=== PATIENT | female | born 1945 | race Caucasian/White ===

== ENCOUNTER 2016-11-11 14:24 | Observation (INO) | payer MEDICARE, BC ==
[2016-11-11] MEDS ORDERED: Sodium Chloride 0.9% 5 ML Syringe FLUSH PRN ×2 (14:57→17:19)
--- NOTE | 2016-11-11 15:48 | EDM.PDOC ---
Addendum entered and electronically signed by Lance Fregoso PA 11/11/16 17:24 : ER H&P CAN BE USED FOR ADMISSION H&P Original Note: ED HPI NEURO - General Chief Complaint: Neuro Symptoms/Deficits Stated Complaint: CONFUSED, LOSS OF MEMORY Time Seen by Provider: 11/11/16 14:57 Source of Information: Reports: Patient, Family (SON) History Limitations: Reports: No limitations - History of Present Illness INITIAL COMMENTS - FREE TEXT/NARRATIVE: PT STATES AT 1230 TODAY SHE DEVELOPED NUMBNESS AND TINGLING IN FINGERS OF RIGHT HAND. THIS HAPPENED WHILE SHE WAS TALKING ON PHONE. AT THAT TIME SHE ALSO HAD DIFFICULT TIME EXPRESSING WORDS AND HAD HARD TIME REMEMBERING PEOPLE. LASTED LESS THAN ONE HOUR. ADMITS TO VERY STRESSFUL MORNING BECAUSE OF FAMILY ISSUES. DENIES CP, SOB, LOREDO, BLURRY VISION, N/V/D, FEVER, OR SIMILAR SYMPTOMS IN PAST. Timing/Duration: Reports: Hour(s): (2) Location (Neuro Complaint): Reports: upper extremity, right Quality (Neuro Complaint): Reports: numbness, tingling Severity: mild Improves with: Reports: None Worsens with: Reports: None Associated Symptoms: Reports: confusion. Denies: headaches, seizure, shortness of breath, chest pain, fever/chills, nausea/vomiting - Related Data Allergies/ADRs: Allergies Allergy/AdvReac Type Severity Reaction Status Date / Time morphine Allergy Swelling Verified 11/11/16 15:06 Home Meds: Home Meds Ascorbic Acid [Vitamin C] 1,000 mg PO DAILY 11/11/16 [History] Aspirin [Ecotrin] 81 mg PO DAILY 11/11/16 [History] Cholecalciferol (Vitamin D3) [Vitamin D3] 2,000 units PO DAILY 11/11/16 [History ] Dexlansoprazole [Dexilant] 60 mg PO DAILY 11/11/16 [History] LORazepam [Ativan] 1 mg PO Q8H PRN 11/11/16 [History] Vitamin B6-pyridOXINE 100 mg PO DAILY 11/11/16 [History] atorvaSTATin Calcium [Atorvastatin Calcium] 20 mg PO DAILY 11/11/16 [History] metFORMIN HCl [Metformin HCl ER] 500 mg PO DAILY 11/11/16 [History] Social & Family History - Tobacco Use Smoking Status *Q: Never Smoker Second Hand Smoke Exposure: No - Caffeine Use Caffeine Use: Reports: Coffee Caffeine Use Comment: 2 cups daily usually - Recreational Drug Use Recreational Drug Use: No ED ROS GENERAL - Review of Systems Review Of Systems: ROS reveals no pertinent complaints other than HPI. Constitutional: Reports: no symptoms HEENT: Reports: No symptoms Respiratory: Reports: No Symptoms Cardiovascular: Reports: No symptoms Endocrine: Reports: no symptoms GI/Abdominal: Reports: No symptoms : Reports: no symptoms Musculoskeletal: Reports: no symptoms Skin: Reports: no symptoms Neurological: Reports: Confusion, Numbness, Change in Speech. Denies: Pre- Existing Deficit Hematologic/Lymphatic: Reports: no symptoms Immunologic: Reports: no symptoms ED EXAM, NEURO - Physical Exam Exam: See Below Exam Limited By: No limitations General Appearance: alert, WD/WN, mild distress Eye Exam: bilateral eye: normal inspection Ears: normal external exam, normal canal, normal TMs Nose: normal inspection, normal mucosa, no blood Throat/Mouth: Normal inspection, Normal lips, Normal oropharynx, Normal voice, No airway compromise Head Exam: atraumatic, normocephalic Neck: normal inspection, supple. No: carotid bruit, lymphadenopathy (L), lymphadenopathy (R), thyromegaly Respiratory/Chest: no respiratory distress, lungs clear, normal breath sounds, no accessory muscle use, chest non-tender Cardiovascular: regular rate, rhythm, no murmur, no rub GI/Abdominal: normal bowel sounds, soft, non tender, no distention, no abnormal bruit, no mass Neurological: alert, normal mood/affect, CN II-XII intact, no motor/sensory deficits, oriented x 3 Extremities: normal inspection, non-tender, no pedal edema, normal capillary refill Psychiatric: anxious Skin Exam: Warm, Dry, Intact, Normal color, No rash EKG INTERPRETATION EKG Date: 11/11/16 Time: 15:15 Rhythm: NSR [place]: normal P-wave: present QRS: normal ST-T: normal Comparison: NA - no prior EKG Course - Vital Signs Last Recorded V/S: Last Vital Signs Temp 98.3 F 11/11/16 14:40 Pulse 88 11/11/16 14:40 Resp 16 11/11/16 14:40 BP 176/69 H 11/11/16 14:40 Pulse Ox 95 11/11/16 14:40 - Orders/Labs/Meds Orders: Active Orders 24 hr Category Date Time Status EKG Documentation Completion [RC] ASDIRECTED Care 11/11/16 14:58 Ordered Peripheral IV Care [RC] . DIRECTED Care 11/11/16 14:58 Ordered Chest 1V Frontal [CR] Stat Exams 11/11/16 14:57 Ordered Head wo Cont [CT] Stat Exams 11/11/16 14:57 Ordered COMPREHENSIVE METABOLIC PN,CMP [CHEM] Stat Lab 11/11/16 14:57 Ordered INR,PT,PROTHROMBIN TIME [COAG] Stat Lab 11/11/16 14:57 Ordered MAGNESIUM [CHEM] Stat Lab 11/11/16 14:57 Ordered PTT,PARTIAL THROMBOPLSTIN TIME [COAG] Stat Lab 11/11/16 14:57 Ordered TROPONIN I [CHEM] Stat Lab 11/11/16 14:57 Ordered Sodium Chloride 0.9% [Syrex Flush] Med 11/11/16 14:57 Ordered 5 ml FLUSH Q8HR PRN Peripheral IV Insertion Adult [OM.PC] Urgent Oth 11/11/16 14:57 Ordered Saline Lock Insert [OM.PC] Stat Oth 11/11/16 14:57 Ordered EKG 12 Lead [EK] Stat Ther 11/11/16 14:57 Ordered Medication Orders Sodium Chloride (Syrex Flush) 5 ml FLUSH Q8HR PRN PRN Reason: Keep Vein Open Labs: Laboratory Tests 11/11/16 Range/Units 15:05 WBC 7.9 (5.0-10.0) 10^3/uL RBC 4.83 (3.80-5.50) 10^6/uL Hgb 13.9 (12.0-16.0) g/dL Hct 42.0 (37.0-47.0) % MCV 86.9 (82.0-92.0) fL MCH 28.8 (27.0-31.0) pg MCHC 33.1 (32.0-36.0) g/dL RDW 12.1 (11.5-14.5) % Plt Count 228 (150-300) 10^3/uL MPV 7.2 L (7.4-10.4) fL Neut % (Auto) 56.1 (50.0-70.0) % Lymph % (Auto) 35.2 (20.0-40.0) % Mineral % (Auto) 6.6 (2.0-8.0) % Eos % (Auto) 1.9 (1.0-3.0) % Baso % (Auto) 0.2 (0.0-1.0) % Neut # 4.4 (2.5-7.0) 10^3/uL Lymph # 2.8 (1.0-4.0) 10^3/uL Mineral # 0.5 (0.1-0.8) 10^3/uL Eos # 0.2 (0.1-0.3) 10^3/uL Baso # 0.0 (0.0-0.1) 10^3/uL Meds: Medications Generic Name Dose Route Start Last Admin Trade Name Freq PRN Reason Stop Dose Admin Sodium Chloride 5 ml 11/11/16 14:57 Syrex Flush FLUSH Q8HR PRN Keep Vein Open - Radiology Interpretation Free Text/Narrative:: CXR NEGATIVE FOR ACUTE PROCESS - Re-Assessments/Exams Free Text/Narrative Re-Assessment/Exam: 11/11/16 17:15 PT AFEBRILE, NONTOXIC APPEARING, ASYMPTOMATIC WHILE IN ER. DENIES CP, LOREDO, NAUSEA. DISCUSSED WITH PT AND DR RUSS AND PT WILL BE ADMITTED FOR OBSERVATION. Departure - Departure Time of Disposition: 17:18 Disposition: Refer to Observation Condition: good Clinical Impression: Anxiety TIA (transient ischemic attack) Qualifiers: Transient cerebral ischemia type: unspecified Qualified Code(s): G45.9 - Transient cerebral ischemic attack, unspecified Forms: ED Department Discharge - My Orders Last 24 Hours: My Active Orders 11/11/16 14:57 Chest 1V Frontal [CR] Stat Head wo Cont [CT] Stat COMPREHENSIVE METABOLIC PN,CMP [CHEM] Stat INR,PT,PROTHROMBIN TIME [COAG] Stat MAGNESIUM [CHEM] Stat PTT,PARTIAL THROMBOPLSTIN TIME [COAG] Stat TROPONIN I [CHEM] Stat Sodium Chloride 0.9% [Syrex Flush] 5 ml FLUSH Q8HR PRN Peripheral IV Insertion Adult [OM.PC] Urgent Saline Lock Insert [OM.PC] Stat EKG 12 Lead [EK] Stat 11/11/16 14:58 EKG Documentation Completion [RC] ASDIRECTED Peripheral IV Care [RC] . DIRECTED - Assessment/Plan Last 24 Hours: My Active Orders 11/11/16 14:57 Chest 1V Frontal [CR] Stat Head wo Cont [CT] Stat COMPREHENSIVE METABOLIC PN,CMP [CHEM] Stat INR,PT,PROTHROMBIN TIME [COAG] Stat MAGNESIUM [CHEM] Stat PTT,PARTIAL THROMBOPLSTIN TIME [COAG] Stat TROPONIN I [CHEM] Stat Sodium Chloride 0.9% [Syrex Flush] 5 ml FLUSH Q8HR PRN Peripheral IV Insertion Adult [OM.PC] Urgent Saline Lock Insert [OM.PC] Stat EKG 12 Lead [EK] Stat 11/11/16 14:58 EKG Documentation Completion [RC] ASDIRECTED Peripheral IV Care [RC] . DIRECTED Assessment:: TIA Plan: ADMIT TO OBSERVATION
[2016-11-11 15:52] LABS: CHLORIDE,CL 104 mmol/L (98-115); SODIUM,NA 143 mmol/L (136-145)
[2016-11-11] MEDS ORDERED: Clopidogrel 75 MG Tab PO ONE (17:23)
[2016-11-11] MEDS: Acetaminophen 325 MG Tab PO PRN (18:23)
[2016-11-11] MEDS ORDERED: Non-Formulary Medication 1 Each (Lorazepam [Ativan] 1 MG) PO PRN (20:06)
[2016-11-12] MEDS: Acetaminophen 325 MG Tab PO PRN (04:51)
[2016-11-12 06:16] VITALS: BP 112/70
[2016-11-12] MEDS ORDERED: LORAZEPAM PO PRN (08:39)
[2016-11-12] MEDS ORDERED: LORazepam 0.5 MG Tab PO PRN (08:40)
[2016-11-12] MEDS ORDERED: metFORMIN 500 MG Tab.ER PO SCH (08:45)
[2016-11-12] MEDS ORDERED: Non-Formulary Medication 1 Each (Metformin Hcl [Metformin Hcl Er] 500 MG) PO SCH (09:00)
--- NOTE | 2016-11-12 16:34 | PCM.DCSUM1 ---
Discharge Summary - Hospital Course Free Text/Narrative:: PT PRESENTED TO ER LAST NIGHT WITH CONFUSION AND RUE NUMBNESS AND TINGLING, AND EVALUATED TO R/O CVA/ TIA. EKG, CXR, LAB VALUES, AND CT HEAD WERE ALL NEGATIVE. PT WAS ADMITTED FOR OBSERVATION STATUS. 75 MG PLAVIX WAS INITIATED. NEURO CHECKS WERE COMPLETED Q2 WHILE IN HOSPITAL. PT HAD UNEVENTFUL NIGHT. VSS REMAINED STABLE, NO REOCCURRENCE OF SYMPTOMS, AND PT FEELS WELL. PT WILL BE DISCHARGED WITH RX FOR 75MG PLAVIX AND F/U WITH DR RUSS IN 2-3 DAYS. - Discharge Data Discharge Date: 11/12/16 Discharge Disposition: Home, Self-Care 01 Condition: Good - Patient Instructions Diet: Regular Diet as Tolerated Activity: No Strenuous Activities, Rest and Relax Today Other/Special Instructions: RETURN TO CLINIC IN 3-5 DAYS. CALL FOR APPOINTMENT - Discharge Plan Prescriptions/Med Rec: Clopidogrel [Plavix] 75 mg PO DAILY #30 tablet Home Medications: Home Meds Ascorbic Acid [Vitamin C] 1,000 mg PO DAILY 11/11/16 [History] Aspirin [Ecotrin] 81 mg PO DAILY 11/11/16 [History] Cholecalciferol (Vitamin D3) [Vitamin D3] 2,000 units PO DAILY 11/11/16 [History ] Dexlansoprazole [Dexilant] 60 mg PO ACBREAKFAST 11/11/16 [History] LORazepam [Ativan] 0.5 - 1 mg PO Q8H PRN 11/11/16 [History] Vitamin B6-pyridOXINE 100 mg PO DAILY 11/11/16 [History] atorvaSTATin Calcium [Atorvastatin Calcium] 20 mg PO DAILY 11/11/16 [History] metFORMIN HCl [Metformin HCl ER] 500 mg PO ACBREAKFAST 11/11/16 [History] Clopidogrel [Plavix] 75 mg PO DAILY #30 tablet 11/12/16 [Rx] Patient Handouts: Transient Ischemic Attack, [id number] Forms: ED Department Discharge Referrals: Harika Deleon MD [Primary Care Provider] - - Discharge Summary/Plan Comment DC Time >30 min.: No - General Info Date of Service: 11/12/16 Admission Dx/Problem (Free Text: TIA Functional Status: Reports: pain controlled, tolerating diet - Review of Systems General: Reports: No Symptoms HEENT: Reports: no symptoms Pulmonary: Reports: no symptoms Cardiovascular: Reports: No Symptoms Gastrointestinal: Reports: No symptoms Genitourinary: Reports: no symptoms Musculoskeletal: Reports: no symptoms Skin: Reports: no symptoms Neurological: Reports: No Symptoms Psychiatric: Reports: no symptoms - Patient Data Vitals - Most Recent: Last Vital Signs Temp 97.8 F 11/12/16 06:14 Pulse 62 11/12/16 06:14 Resp 20 11/12/16 06:14 BP 112/70 11/12/16 06:14 Pulse Ox 95 11/12/16 09:00 Weight - Most Recent: 154 lb I&O - Last 24 hours: Intake & Output 11/12/16 11/12/16 11/12/16 06:59 14:59 22:59 Intake Total 150 560 Balance 150 560 Med Orders - Current: Current Medications Discontinued Medications Acetaminophen (Tylenol) 650 mg PO Q4H PRN PRN Reason: Headache Last Admin: 11/12/16 04:51 Dose: 650 mg Clopidogrel Bisulfate (Plavix) 75 mg PO ONETIME ONE Stop: 11/11/16 17:24 Last Admin: 11/11/16 18:09 Dose: 75 mg Lorazepam (Ativan) 0.5 - 1 mg PO Q8H PRN PRN Reason: Anxiety Last Admin: 11/12/16 09:24 Dose: 0.5 mg Metformin HCl (Glucophage Xr) 500 mg PO WITHBREAKFAST ART Last Admin: 11/12/16 08:40 Dose: 500 mg Non-Formulary Medication (Metformin Hcl [Metformin Hcl Er]) 500 mg PO DAILY ART Non-Formulary Medication (Lorazepam [Ativan]) 0.5 - 1 mg PO Q8H PRN PRN Reason: Anxiety Sodium Chloride (Syrex Flush) 5 ml FLUSH Q8HR PRN PRN Reason: Keep Vein Open - Exam General: Reports: alert, oriented HEENT: Reports: Pupils equal, Pupils reactive Neck: Reports: supple Lungs: Reports: Clear to auscultation, Normal respiratory effort Cardiovascular: Reports: Regular Rate, Regular Rhythm, No Murmurs Abdomen: Reports: bowel sounds present, soft, no tenderness Extremities: Reports: no edema, normal pulses Skin: Reports: warm, dry, intact Neurological: Reports: no new focal deficit, normal gait, normal speech, normal tone, strength equal bilateral, sensation intact Psy/Mental Status: Reports: alert, normal affect, normal mood *Q Meaningful Use (DIS) - VTE *Q VTE Criteria *Q: - Stroke *Q Stroke Criteria *Q: - AMI *Q AMI Criteria *Q:
== END 2016-11-12 14:45 | disposition home or self-care (01) ==
LOC: KA.ED 14:24 → KA.MS 17:19
PROVIDERS: ADMIT Physician Assistant Surgical; ATTEND Internal Medicine
DX: G45.9 Transient cerebral ischemic attack, unspecified (principal); Z88.8 Allergy status to other drugs, medicaments and biological substances; Z79.82 Long term (current) use of aspirin; Z79.899 Other long term (current) drug therapy
CPT/HCPCS: 36415; 70450; 71010; 80053; 83036; 83735; 84484; 85025; 85610; 85730; 93005; 99285; A9270-GY; G0378

== ENCOUNTER 2019-07-29 12:45 | Emergency (ER) | payer MEDICARE, BC ==
--- NOTE | 2019-07-29 13:23 | EDM.PDOC ---
ED HPI GENERAL MEDICAL PROBLEM - General Chief Complaint: General Stated Complaint: c/o dizziness, near syncope Time Seen by Provider: 07/29/19 12:50 Source of Information: Reports: Patient History Limitations: Reports: No Limitations - History of Present Illness INITIAL COMMENTS - FREE TEXT/NARRATIVE: Patient presents with dizziness. She tells me that she first noticed it during the night night while in bed and when she got up. It was a spinning sensation. She has noticed it since then when snow shoveling today and when stooping over to get something from the freezer. She tells me she noticed a feeling of fullness in her left ear earlier today. She denies any weakness in extremities, vision change, pain in chest. She has never had this before. - Related Data Allergies Allergy/AdvReac Type Severity Reaction Status Date / Time morphine Allergy Swelling Verified 07/29/19 12:56 Home Meds: Home Meds Ascorbic Acid [Vitamin C] 1,000 mg PO DAILY 11/11/16 [History] Aspirin [Ecotrin] 81 mg PO DAILY 11/11/16 [History] Cholecalciferol (Vitamin D3) [Vitamin D3] 2,000 units PO DAILY 11/11/16 [History ] Dexlansoprazole [Dexilant] 60 mg PO ACBREAKFAST 11/11/16 [History] LORazepam [Ativan] 0.5 - 1 mg PO Q8H PRN 11/11/16 [History] Vitamin B6-pyridOXINE 100 mg PO DAILY 11/11/16 [History] atorvaSTATin Calcium [Atorvastatin Calcium] 20 mg PO DAILY 11/11/16 [History] metFORMIN HCl [Metformin HCl ER] 500 mg PO ACBREAKFAST 11/11/16 [History] Clopidogrel [Plavix] 75 mg PO DAILY #30 tablet 11/12/16 [Rx] Past Medical History Gastrointestinal History: Reports: GERD 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: , Other (See Below) Other ELECTRICAL ENGINEERING DESIGNER History: hysterectomy Musculoskeletal History: Reports: Osteoarthritis Psychiatric History: Reports: Anxiety Endocrine/Metabolic History: Reports: Diabetes, Type II - Infectious Disease History Infectious Disease History: Reports: Mumps - Past Surgical History Musculoskeletal Surgical History: Reports: Hip Replacement Social & Family History - Caffeine Use Caffeine Use: Reports: Coffee Caffeine Use Comment: 2 cups daily usually ED ROS GENERAL - Review of Systems Review Of Systems: See Below Constitutional: Denies: Fever, Malaise, Weakness HEENT: Denies: Ear Discharge, Ear Pain, Hearing Loss, Vision Change Respiratory: Denies: Shortness of Breath, Cough Cardiovascular: Denies: Chest Pain, Lightheadedness, Syncope GI/Abdominal: Denies: Nausea, Vomiting : Denies: Dysuria, Flank Pain, Frequency Musculoskeletal: Reports: Neck Pain (chronic, osteoarthritis). Denies: Shoulder Pain, Arm Pain, Back Pain, Hand Pain, Leg Pain Skin: Denies: Cyanosis, Jaundice, Mottled, Pallor, Diaphoresis Neurological: Reports: Dizziness. Denies: Confusion, Headache, Numbness, Seizure, Syncope, Tingling, Trouble Speaking, Weakness Psychiatric: Denies: Agitation, Anxiety, Confusion ED EXAM, GENERAL - Physical Exam Exam: See Below Exam Limited By: No Limitations General Appearance: Alert, WD/WN, No Apparent Distress Eye Exam: Bilateral Eye: EOMI, Normal Inspection, PERRL Ears: Normal External Exam, Normal Canal, Hearing Grossly Normal, Normal TMs Nose: Normal Inspection, No Blood Throat/Mouth: Normal Inspection, Normal Lips, Normal Voice, No Airway Compromise Head: Atraumatic, Normocephalic Neck: Normal Inspection, Supple, Non-Tender, Full Range of Motion. No: Carotid Bruit, Tender Lateral, Tender Midline Respiratory/Chest: No Respiratory Distress, Lungs Clear, Normal Breath Sounds Cardiovascular: Regular Rate, Rhythm, No Murmur GI/Abdominal: Normal Bowel Sounds, Soft, Non-Tender, No Organomegaly, No Distention Back Exam: Normal Inspection, Full Range of Motion. No: Paraspinal Tenderness, Vertebral Tenderness Extremities: Normal Inspection, Normal Range of Motion Neurological: Alert, Oriented, CN II-XII Intact, Normal Cognition, No Motor/ Sensory Deficits, Other (Iam Palomo-Whitehall test is positive to the left without nystagmus noted. Romberg is negative.) Psychiatric: Normal Affect, Normal Mood Skin Exam: Warm, Dry, Intact, Normal Color, No Rash Course - Vital Signs Last Recorded V/S: Last Vital Signs Temp 97.0 F 07/29/19 12:53 Pulse 71 07/29/19 12:53 Resp 17 07/29/19 12:53 BP 183/68 H 07/29/19 12:53 Pulse Ox 94 L 07/29/19 12:53 - Re-Assessments/Exams Free Text/Narrative Re-Assessment/Exam: 07/29/19 13:37 This appears most consistent with BPPV. I discussed findings and treatment recommendations with patient. She will follow up with her PCP on Wednesday and likely get PT if not resolving. We discussed trying meclizine but latest recommendations advise not using beyond age 65 and recommend OTC alternatives instead. This appears to be a mild case as she has only had symptoms 3 times since it started. Patient discharged to home in stable condition. Departure - Departure Time of Disposition: 13:23 Disposition: Home, Self-Care 01 Condition: Good Clinical Impression: BPPV (benign paroxysmal positional vertigo) Qualifiers: Laterality: left Qualified Code(s): H81.12 - Benign paroxysmal vertigo, left ear - Discharge Information Instructions: Benign Positional Vertigo, Vertigo, [id number] Additional Instructions: 1. Avoid driving and use caution with walking if dizzy until the vertigo is resolved. 2. You can use Dramamine as directed if needed for the vertigo. 3. Follow up with PT or your PCP on Wednesday if not improving.
[2019-07-29 16:19] VITALS: BP 159/57; PULSE 65
== END 2019-07-29 13:45 | disposition home or self-care (01) ==
LOC: KA.ED 12:45
DX: H81.12 Benign paroxysmal vertigo, left ear (principal); E11.9 Type 2 diabetes mellitus without complications; K21.9 Gastro-esophageal reflux disease without esophagitis; M19.90 Unspecified osteoarthritis, unspecified site; F41.9 Anxiety disorder, unspecified; Z88.5 Allergy status to narcotic agent; Z79.82 Long term (current) use of aspirin; Z79.02 Long term (current) use of antithrombotics/antiplatelets; Z79.84 Long term (current) use of oral hypoglycemic drugs; Z79.899 Other long term (current) drug therapy
CPT/HCPCS: 99283

== ENCOUNTER 2021-12-09 08:46 | Day surgery (SDC) | payer MEDICARE, BC ==
[~2021-12-09 08:46] MED LIST: Sodium Chloride 0.9% 10 ML Syringe FLUSH PRN
[2021-12-09] MEDS: Sodium Chloride 0.9% 1,000 ML IV SCH (09:17)
[2021-12-09] MEDS ORDERED: Propofol 200 MG/20 ML SDV ONE (09:39)
[2021-12-09] MEDS ORDERED: Midazolam 1 MG/ML 2 ML SDV ONE (09:39)
[2021-12-09 12:27] VITALS: BP 155/87; PULSE 79
== END 2021-12-09 11:20 | disposition home or self-care (01) ==
LOC: KA.SDS 08:46
PROVIDERS: ATTEND Surgery
DX: D12.8 Benign neoplasm of rectum (principal); K64.4 Residual hemorrhoidal skin tags; K21.9 Gastro-esophageal reflux disease without esophagitis; R30.0 Dysuria; E11.9 Type 2 diabetes mellitus without complications; E78.5 Hyperlipidemia, unspecified; Z88.5 Allergy status to narcotic agent; Z88.6 Allergy status to analgesic agent; Z90.711 Acquired absence of uterus with remaining cervical stump; Z86.73 Personal history of transient ischemic attack (TIA), and cerebral infarction without residual deficits; Z79.84 Long term (current) use of oral hypoglycemic drugs; Z79.899 Other long term (current) drug therapy
CPT/HCPCS: 00812; 82947; J2250; J2704; J7030

== ENCOUNTER 2025-05-26 10:39 | Emergency (ER) | payer MEDICARE, BC ==
[2025-05-26] MEDS ORDERED: Sodium Chloride 0.9% 10 ML Syringe FLUSH PRN (11:12)
[2025-05-26 11:20] LABS: BASOPHILS ABSOLUTE AUTO 0.04 10^3/uL (0.00-0.10); BASOPHILS PERCENT AUTO 0.6 % (0.0-1.0); EOSINOPHILS ABSOLUTE AUTO 0.08 10^3/uL (0.10-0.30); EOSINOPHILS PERCENT AUTO 1.1 % (1.0-3.0); IMMATURE GRAN ABSOLUTE AUTO 0.01 10^3/uL (0.00-0.04); IMMATURE GRAN PERCENT AUTO 0.1 % (0.0-0.4); LYMPHOCYTES ABSOLUTE AUTO 2.46 10^3/uL (1.00-4.00); LYMPHOCYTES PERCENT AUTO 34.8 % (20.0-40.0); MEAN PLATELET VOLUME 8.6 fL (7.4-10.4); MONOCYTES ABSOLUTE AUTO 0.57 10^3/uL (0.10-0.80); MONOCYTES PERCENT AUTO 8.1 % (2.0-8.0); NEUTROPHILS ABSOLUTE AUTO 3.91 10^3/uL (2.50-7.00); NEUTROPHILS PERCENT AUTO 55.3 % (50.0-70.0); PLATELET COUNT,PLT 227 10^3/uL (150-400); RED BLOOD CELL COUNT 4.66 10^6/uL (3.80-5.50); RED CELL DISTRIBUTION WIDTH 11.9 % (11.5-14.5); WHITE BLOOD CELL COUNT,WBC 7.07 10^3/uL (5.00-10.00)
[2025-05-26 11:35] LABS: BLOOD UREA NITROGEN,BUN 7.0 mg/dL (7-18); CARBON DIOXIDE,CO2 27.3 mmol/L (21.0-32.0); CHLORIDE,CL 101.0 mmol/L (98-107); CREATININE 0.5 mg/dL (0.51-1.17); EST CRCL DRUG DOSING (CG) 81.37 mL/min; GLUCOSE RANDOM 130.0 mg/dL (70-140); POTASSIUM,K 4.1 mmol/L (3.5-5.1); SODIUM,NA 139.0 mmol/L (136-145)
[2025-05-26 11:36] LABS: ESTIMATED GFR 97.0 mL/min (>=60)
[2025-05-26] MEDS: Ketorolac 30 MG/ML SDV IVPUSH ONE (11:40)
[2025-05-26 13:47] VITALS: BP 163/78; PULSE 63
== END 2025-05-26 13:46 | disposition home or self-care (01) ==
LOC: KA.ED 10:39
DX: N12 Tubulo-interstitial nephritis, not specified as acute or chronic (principal); M25.462 Effusion, left knee; I10 Essential (primary) hypertension; E78.00 Pure hypercholesterolemia, unspecified; E11.9 Type 2 diabetes mellitus without complications; Z88.8 Allergy status to other drugs, medicaments and biological substances; Z79.84 Long term (current) use of oral hypoglycemic drugs; Z79.899 Other long term (current) drug therapy; Z86.16 Personal history of COVID-19
CPT/HCPCS: 73562-LT; 74176; 80048; 83605; 85025; 85379; 96374; 96375; 99284; 99284-25; A9270-GY; J0696; J1885

== ENCOUNTER 2025-07-21 09:33 | Emergency (ER) | payer MEDICARE, BC ==
[2025-07-21] MEDS ORDERED: Sodium Chloride 0.9% 10 ML Syringe FLUSH PRN (10:08)
[2025-07-21 10:18] LABS: BASOPHILS ABSOLUTE AUTO 0.03 10^3/uL (0.00-0.10); BASOPHILS PERCENT AUTO 0.4 % (0.0-1.0); EOSINOPHILS ABSOLUTE AUTO 0.10 10^3/uL (0.10-0.30); EOSINOPHILS PERCENT AUTO 1.2 % (1.0-3.0); IMMATURE GRAN ABSOLUTE AUTO 0.02 10^3/uL (0.00-0.04); IMMATURE GRAN PERCENT AUTO 0.2 % (0.0-0.4); LYMPHOCYTES ABSOLUTE AUTO 2.24 10^3/uL (1.00-4.00); LYMPHOCYTES PERCENT AUTO 26.8 % (20.0-40.0); MEAN PLATELET VOLUME 8.5 fL (7.4-10.4); MONOCYTES ABSOLUTE AUTO 0.65 10^3/uL (0.10-0.80); MONOCYTES PERCENT AUTO 7.8 % (2.0-8.0); NEUTROPHILS ABSOLUTE AUTO 5.32 10^3/uL (2.50-7.00); NEUTROPHILS PERCENT AUTO 63.6 % (50.0-70.0); PLATELET COUNT,PLT 209 10^3/uL (150-400); RED BLOOD CELL COUNT 4.68 10^6/uL (3.80-5.50); RED CELL DISTRIBUTION WIDTH 12.4 % (11.5-14.5); WHITE BLOOD CELL COUNT,WBC 8.36 10^3/uL (5.00-10.00)
[2025-07-21 10:33] LABS: APPEARANCE,URINE SLIGHTLY CLOUDY (CLEAR); GLUCOSE,URINE NEGATIVE (NEGATIVE); OCCULT BLOOD,URINE NEGATIVE (NEGATIVE)
[2025-07-21 10:33] LABS: ALANINE AMINOTRANSFERASE,ALT 24.0 U/L (14-63); ASPARTATE AMNIOTRANSFERASE,AST 15.0 U/L (15-37); BILIRUBIN TOTAL 0.4 mg/dL (0.2-1.0); BLOOD UREA NITROGEN,BUN 10.0 mg/dL (7-18); CARBON DIOXIDE,CO2 29.8 mmol/L (21.0-32.0); CHLORIDE,CL 103.0 mmol/L (98-107); CREATININE 0.48 mg/dL (0.51-1.17); EST CRCL DRUG DOSING (CG) 84.76 mL/min; GLUCOSE RANDOM 124.0 mg/dL (70-140); POTASSIUM,K 4.1 mmol/L (3.5-5.1); PROTEIN TOTAL,TP 6.9 g/dL (6.4-8.2); SODIUM,NA 139.0 mmol/L (136-145)
[2025-07-21 10:35] LABS: EPITHELIAL CELLS,URINE FEW /LPF
[2025-07-21 10:36] LABS: ESTIMATED GFR 97.0 mL/min (>=60)
[2025-07-21 11:58] VITALS: BP 159/77; PULSE 67
== END 2025-07-21 11:33 | disposition home or self-care (01) ==
LOC: KA.ED 09:33
DX: N39.0 Urinary tract infection, site not specified (principal); I10 Essential (primary) hypertension; K21.9 Gastro-esophageal reflux disease without esophagitis; E11.9 Type 2 diabetes mellitus without complications; E78.00 Pure hypercholesterolemia, unspecified; Z86.73 Personal history of transient ischemic attack (TIA), and cerebral infarction without residual deficits; Z79.899 Other long term (current) drug therapy; Z79.84 Long term (current) use of oral hypoglycemic drugs; Z88.5 Allergy status to narcotic agent
CPT/HCPCS: 80053; 81001; 84550; 85025; 87086; 99283; 99284